=== PATIENT | female | born 1960 | race Two or more races ===

== ENCOUNTER 2022-07-28 18:05 | Emergency (ER) | payer SELFPAY ==
[~2022-07-28] VITALS: Ht 154.9 cm; Wt 69.1 kg
[2022-07-28 18:19] VITALS: BP 158/82
[2022-07-28 18:38] LABS: Basophils # (auto) 0.1 10 ^3/uL (0-0.2); Basophils % (auto) 0.5 % (0.0-2.0); Eosinophils # (auto) 0.1 10 ^3/uL (0-0.8); Hematocrit 39.3 % (36.0-46.0); Hemoglobin 13.3 g/dL (12.2-16.2); Lymphocytes % (auto) 31.5 % (10.0-50.0); Mean Corpuscular Hgb Conc. 33.8 g/dL (32.0-36.0); Mean Corpuscular Volume 91.5 fL (80.0-100.0); Monocytes # (auto) 0.4 10 ^3/uL (0-1.3); Neutrophils # (auto) 6.1 10 ^3/uL (1.6-8.6); Nucleated Red Blood Cells % 0.1 %; Red Blood Cells 4.29 10^6/uL (4.0-5.20); Red Cell Distribution Width 13.5 % (11.8-14.3); White Blood Cell 9.7 10^3/uL (4.4-10.8)
[2022-07-28 18:54] LABS: BUN/Creatinine Ratio 19.4; Calcium 9.6 mg/dL (8.5-10.1); Potassium 4.8 mmol/L (3.5-5.1)
[2022-07-28 18:59] LABS: Bilirubin, Total 0.3 mg/dL (0.2-1.0); Total Protein 7.1 g/dL (6.4-8.2)
[2022-07-28] MEDS ORDERED: NITROGLYCERIN 0.4 MG SL TAB SL ONE (22:00)
[2022-07-28] MEDS ORDERED: ASPirin 325 MG TAB PO ONE (22:00)
== END 2022-07-28 23:13 | disposition left against medical advice (07) ==
LOC: ER 18:05
DX: I24.9 Acute ischemic heart disease, unspecified (principal); E11.9 Type 2 diabetes mellitus without complications; Z90.49 Acquired absence of other specified parts of digestive tract; Z90.711 Acquired absence of uterus with remaining cervical stump
CPT/HCPCS: 36415; 71045; 80053; 84484; 85025; 85379; 93005